=== PATIENT | male | born 1965 | race Caucasian/White ===

== ENCOUNTER 2020-02-18 17:55 | Emergency (ER) | payer SELFPAY ==
[~2020-02-18] VITALS: Ht 170.2 cm; Wt 106.8 kg
[2020-02-18] MEDS ORDERED: INDO50CA15 PO (18:18)
[2020-02-18] MEDS ORDERED: KETOROLAC 60 MG/2 ML VIAL. IM ONE (18:30)
[2020-02-18 18:32] VITALS: BP 148/75
[2020-02-18] MEDS ORDERED: KETOROLAC 30 MG/ML VIAL. ONE (18:36)
--- NOTE | 2020-02-18 18:36 | RAD ---
Exam: Right foot 3 views INDICATION: Great toe pain TECHNIQUE: Frontal, lateral and oblique views of the right foot Comparisons: None FINDINGS: There is moderate degenerative change at the first MTP joint with subchondral sclerosis, marginal osteophytosis. Soft tissues are unremarkable. Joint spaces are well-maintained. Bone mineralization is normal. IMPRESSION: Moderate degenerative change at the first MTP joint. Electronically signed by: Laci Luis MD (02/18/2020 6:33 PM) [id number]
--- NOTE | 2020-02-18 18:44 | PHYS DOC ---
Past History Past Medical History: No Pertinent History Past Surgical History: No Surgical History Alcohol Use: None General Adult EDM: Chief Complaint: FOOT INJURY PAIN HPI: HPI: Patient is a 54-year-old male presenting with right great toe pain started at 2 PM no trauma noted. Small pimple on the top of the toe but does not recall any specific trauma. 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 No fever no other trauma no past medical history has not seen a doctor recently no daily medications no allergies no other history. Review of Systems: Review of Systems: Constitutional: Denies fever or chills Eyes: Denies change in visual acuity HENT: Denies nasal congestion or sore throat Respiratory: Neurologic: Denies headache, focal weakness or sensory changes Endocrine: Denies polyuria or polydipsia Lymphatic: Denies swollen glands Psychiatric: Denies depression or anxiety Heart Score: Risk Factors: Risk Factors: DM, Current or recent (<one month) smoker, HTN, HLP, family history of CAD, obesity. Risk Scores: Score 0 - 3: 2.5% MACE over next 6 weeks - Discharge Home Score 4 - 6: 20.3% MACE over next 6 weeks - Admit for Clinical Observation Score 7 - 10: 72.7% MACE over next 6 weeks - Early Invasive Strategies Current Medications: Current Meds: Current Medications Medications (Trade) Dose Ordered Sig/Sydni Start Time Stop Time Status Last Admin Dose Admin Ketorolac Tromethamine (Toradol 30mg Vial) 30 mg STK-MED ONCE 02/18/20 18:36 02/18/20 18:36 DC Ketorolac Tromethamine (Toradol Im) 30 mg 1X ONCE 02/18/20 18:30 02/18/20 18:31 UNV 02/18/20 18:30 30 MG Allergies: Allergies: Allergies Coded Allergies Type Severity Reaction Last Updated Verified No Known Drug Allergies 02/18/20 No Physical Exam: PE: Constitutional: Well developed, well nourished, no acute distress, non-toxic appearance. [] HENT: Normocephalic, atraumatic, bilateral external ears normal, oropharynx moist, no oral exudates, nose normal. [] Eyes: PERRLA, EOMI, conjunctiva normal, no discharge. [] Neck: Normal range of motion, no tenderness, supple, no stridor. [] Pulmonary: Normal respiratory effort no increased work of breathing no obvious chest wall trauma Skin: Warm, dry, no erythema, no rash. [] Back: No tenderness, no CVA tenderness. [] Extremities: Small pimple on the dorsum of the great toe with no appreciable redness there is mild to moderate tenderness no swelling no fluctuance. Pedal pulses are present foot is warm Neurologic: Alert and oriented X 3, normal motor function, normal sensory function, no focal deficits noted. [] Psychologic: Affect normal, judgement normal, mood normal. [] Current Patient Data: Vital Signs: Vital Signs Date Time Temp Pulse Resp B/P (MAP) Pulse Ox O2 Delivery O2 Flow Rate FiO2 02/18/20 18:32 97.7 77 18 148/75 (99) 97 EKG: EKG: [] Radiology/Procedures: Radiology/Procedures: [] Impressions: Arthritis noted on final read of the x-ray Course & Med Decision Making: Course & Med Decision Making Pertinent Labs and Imaging studies reviewed. (See chart for details) [] Great toe pain no trauma could be gout also component of arthritis present anti-inflammatory was prescribed ambulation discussed patient voiced understanding Dean Disclaimer: Dean Disclaimer: This electronic medical record was generated, in whole or in part, using a voice recognition dictation system. Departure Departure: Impression: Primary Impression: Foot pain Disposition: 01 HOME/RESIDENCE PRIOR TO ADM Condition: STABLE Patient Instructions: Gout, [id number] Scripts Indomethacin (INDOMETHACIN) 50 Mg Capsule 1 CAP PO TID for arthritis for 10 Days, #15 CAP 0 Refills with food Prov: CHU JUDD MD 02/18/20 Justification of Admission: Justification of Admission: Justification of Admission Dx: N/A CHU JUDD MD Feb 18, 2020 18:44
== END 2020-02-18 18:43 | disposition home or self-care (01) ==
LOC: ER 17:55
DX: M79.674 Pain in right toe(s) (principal)
CPT/HCPCS: 73630; 96372; 99283; J1885